=== PATIENT | female | born 2000 ===

== ENCOUNTER 2022-02-20 21:52 | Emergency (ER) | payer SELFPAY ==
[~2022-02-20] VITALS: Ht 172.7 cm; Wt 72.7 kg
[2022-02-20 21:56] VITALS: BP 127/89
== END 2022-02-21 01:48 | disposition left against medical advice (07) ==
LOC: ER 21:53
DX: R05.9 Cough, unspecified (principal); J02.9 Acute pharyngitis, unspecified; Z53.21 Procedure and treatment not carried out due to patient leaving prior to being seen by health care provider